=== PATIENT | female | born 1945 | race Caucasian/White ===

== ENCOUNTER → 2020-08-08 | Outpatient (CLI) | payer MEDICARE ==
[~2020-08-08] MED LIST: ASPI81CH PO; CALCA400CH PO; CRUTCH2 XX; Diovan Hct 80-1 EACH PO; FLUSAL2505 INH; K-Phos Origina500 MG PO; LOSA50 PO; LOVA40 PO; Norco 5-325 Ta1 EACH PO; Prozac20 MG PO; Prozac40 MG PO; TIOT18 INH; TRAZ100 PO; TRAZ50 PO; TUMS200 MG PO
[2020-08-08 19:58] LABS: Appearance, Urine Clear (Clear); Blood, Urine 1+ (Neg); Color, Urine Amber (P-Yellow); Glucose Qualitative, Urine 1+ (Neg); Ketones, Urine 3+ (Neg); Leukocyte Esterase, Urine 1+ (Neg); Nitrite, Urine Pos (Neg); Protein, Urine 2+ (Neg); Specific Gravity, Urine 1.015 (1.003-1.022); Urobilinogen, Urine 3+ (Normal); pH, Urine 6.5 (5.0-8.0)
[2020-08-08 20:16] LABS: Bilirubin, Urine 1+ (Neg)
[2020-08-08 20:17] LABS: Bacteria Mod /hpf; Mucus Light (0-Heavy); Red Blood Cells, Urine 0-2 /hpf (0-2); Squamous Epithelial Cells Few /hpf (Few)
== END | disposition home or self-care (01) ==
LOC: LAB 14:45 → LAB SHORT 14:45
PROVIDERS: Registered Nurse
DX: R35.0 Frequency of micturition (principal)
CPT/HCPCS: 81001; 87086

== ENCOUNTER → 2020-09-22 | Outpatient (CLI) | payer MEDICARE | END | disposition home or self-care (01) | LOC: LAB 15:55 → LAB SHORT 15:55 | DX: R32 Unspecified urinary incontinence (principal) | CPT/HCPCS: 87086; 87147 ==